=== PATIENT | male | born 1985 | race African-American/Black ===

== ENCOUNTER 2023-04-03 14:06 | Emergency (ER) | payer OTHER, SELFPAY ==
[2023-04-03 14:10] VITALS: BP 143/77
--- NOTE | 2023-04-03 14:53 | ED.GENMED ---
History of Present Illness
General
Chief Complaint: Abdominal Pain
Source: patient
Exam Limitations: none
Time Seen by Provider: 04/03/23 14:38
Travel History
Have you had any contact with someone who has COVID-19?: No
Do you have any symptoms of coronavirus? Fever > 100 degrees, chills, cough, shortness of breath, sore throat, loss of taste or smell, muscle aches, or headache?: No
History of Present Illness
History of Present Illness:
38-year-old male presents complaining of ongoing pain to the left inguinal region. This reminds him of pain he had on the right side when he had a hernia fixed. He denies vomiting. No fever. It is worse when he stands up and starts working. He
is moving his bowels. Urinating. Is healthy otherwise. No other complaints at this time
Past History
Past History
ED Past Medical History: Asthma
ED Past Surgical History: None
Social History
Tobacco: Non-smoker
Alcohol: None
Drug: None
Employment: Employed
Phy Exam
Physical Exam
Physical Exam:
General: Well-appearing male nontoxic no acute respiratory
HEENT: Normocephalic atraumatic neck is supple
Heart: Regular rate and rhythm no murmurs
Lungs: Clear to auscultation bilaterally no wheezing
Abdomen: Soft nontender nondistended no guarding rebound normal bowel sounds. Left inguinal region is slightly tender but no bulging noted
Extremities: No cyanosis or edema
Course
Vital Signs
Initial and Last Documented VS:
Initial Vital Signs
Temp Pulse Resp BP Pulse Ox
98.4 F 56 18 143/77 98
04/03/23 14:10 04/03/23 14:10 04/03/23 14:10 04/03/23 14:10 04/03/23 14:10
Last Documented Vital Signs
Temp Pulse Resp BP Pulse Ox
98.4 F 56 18 143/77 98
04/03/23 14:10 04/03/23 14:10 04/03/23 14:10 04/03/23 14:10 04/03/23 14:10
*Critical Care Note
Total Time (30-74mins, 75-104mins- exclusive of procedures): Not Applicable
Update Note
Update Note:
Patient has left lower inguinal pain. Symptoms consistent with hernia. No evidence of active herniation or incarceration. Abdomen is otherwise benign nontender. I do suspect inguinal hernia. Explained to patient he should follow-up with general
surgery for further evaluation at this point given benign abdomen no evidence of incarceration no imaging necessary. Stable for discharge
ED Attending Note
-
Portions of this chart may have been created with voice recognition software.� Occasional wrong word or��sound alike� substitutions may have occurred due to the inherent limitations of voice recognition software.
Discharge Plan
Departure
Patient Disposition: Home (Routine Discharge)
Date of Disposition: 04/03/23
Time of Disposition: 14:55
Patient with high blood pressure during this ER visit?: No
Discharge Problem:
Inguinal hernia
Instructions: Abdominal Hernia (DC)
Prescriptions:
No Action
prednisone 50 MG tablet
50 mg PO DAILY Qty: 2 0RF
albuterol sulfate [Proventil HFA] 90 MCG/PUFF HFA aerosol inhaler
2 puff inhalation Q4HPRN PRN (Reason: shortness of breath) Qty: 1 0RF
Referrals:
Marciano Lobo MD [Active] -
NONE,* [Family Provider] -
Activity Restrictions/Additional Instructions:
Try to limit heavy lifting and twisting. Please follow-up with general surgery for further evaluation. Return here for increasing swelling pain vomiting or other concerning 5
Interventions
Interventions:
[id number] Assessment Last Done: 04/03/23 14:41
== END 2023-04-03 15:30 | disposition home or self-care (01) ==
LOC: EMR 14:06
PROVIDERS: EMERGENCY PHYSICIAN Emergency Medicine
DX: K40.90 Unilateral inguinal hernia, without obstruction or gangrene, not specified as recurrent (principal); R10.9 Unspecified abdominal pain
CPT/HCPCS: 99282